=== PATIENT | male | born 1945 | race Caucasian/White ===

== ENCOUNTER 2019-02-22 16:19 | Inpatient (IN) | payer MEDICAID ==
[~2019-02-22] VITALS: Ht 167.6 cm; Wt 81.6 kg
--- NOTE | 2019-02-22 16:20 | NUR ---
RAPID RESPONSE CALLED TO JESSICA GRIMES AT APPROX 1612; PT FOUND SITTING UP RIGHT IN TRUCK OF CO-WORKER. PER CO WORKER, PT WAS WORKING FOR HIM AND COLLAPSED AND LANDED ON THE GROUND. PER CO WORKER, PT WAS DID NOT PASS OUT. PT UNABLE TO ANSWER QUESTIONS APPROPRIATELY AT THIS TIME. KAYLAH JAIMES INTERPRETTING FOR PT HE IS [place] SPEAKING ONLY. PT SAYS HE IS IN [place] AND IT IS SATURDAY.
--- NOTE | 2019-02-22 16:24 | NUR ---
AT BEDSIDE; COOL WASH CLOTHS PLACED ON HEAD WITH COOLD WATER POURED ON PT WITH ICE PACKS PLACED AT NECK, ARMPITS, AND GROIN AREA
--- NOTE | 2019-02-22 16:25 | NUR ---
PT ARRIVED TO ED WITH HAT ON, VELCRO WAIST BAND, THICK INNER LAYER LONG SLEEVE AND OUTER SLEEVE ON WITH BLACK SOCKS AND SHOES. ALL CLOTHES REMOVED. PT HAS VERY HOT TO TOUCH SKIN.
[2019-02-22 16:29] VITALS: Ht 167.6 cm; Wt 81.6 kg
--- NOTE | 2019-02-22 16:37 | NUR ---
RT AT BEDSIDE FOR BLOOD GAS
--- NOTE | 2019-02-22 16:41 | NUR ---
REPORT RECEIVED FROM ADRY AQUINO. PT IN FULL MONITORS, SEVERAL MOIST COLD TOWELS ON PT'S BODY. FAN ON HIGH AND BLOWING TOWARD PT PER DR MILLIE FLORES. PT OPENS EYES SPONTANEOUSLY. SPEAKS [place] MAINLY, ASKED WHERE PT IS AT, HE STATED [facility] [place]; ASKED WHERE PT WAS WORKING, PT REPLIED TY; PT CALM AND COOPERATIVE; WHEN ASKED PT HOW HE FEELS HE STATED "I FEEL HOT" IN [place].
[2019-02-22 16:44] LABS: BASOPHIL % 0.4 % (0-2); PLATELET COUNT 262 x10^3mcL (130-400)
[2019-02-22 16:45] LABS: microscopic required? NO
[2019-02-22 16:45] LABS: CALCIUM 8.6 mg/dL (8.5-10.1); CARBON DIOXIDE 28.7 mmol/L (21-32); CHLORIDE SERUM 100 mmol/L (98-107); CREATININE SERUM 0.8 mg/dL (0.7-1.3); GFR1 > 60 mL/min; GLUCOSE SERUM 110 mg/dL (74-106); POTASSIUM SERUM 4.4 mmol/L (3.5-5.1); SODIUM SERUM 136 mmol/L (136-145)
--- NOTE | 2019-02-22 16:47 | NUR ---
DR PINTO AWARE PT COWORKER AT BEDSIDE.
--- NOTE | 2019-02-22 16:47 | NUR ---
PT COWORKER WHO BROUGHT HIM IN AT BEDSIDE WHO VERIFIED THEY WERE WORKING IN [facility]. PT ANSWERS QUESTIONS APPROPRIATELY AT THIS TIME AND STATED HIS FULL AND NAME.
--- NOTE | 2019-02-22 16:48 | NUR ---
PT COWORKER STATED TO DR PINTO "HE WAS JUST OUTSIDE. WE WERE WORKING AND ALL OF A SUDDEN I SEE HIM LAYING DOWN ON THE GROUND. MY DAD SAW HIM."
[2019-02-22 16:51] LABS: ALBUMIN 3.7 g/dL (3.4-5.0); ALKALINE PHOSPHATASE 56 U/L (46-116); ALT/SGPT 20 U/L (16-63); AST/SGOT 13 U/L (15-37); BILIRUBIN TOTAL 0.49 mg/dL (0.20-1.00); TOTAL PROTEIN, SERUM 6.8 g/dL (6.4-8.2)
--- NOTE | 2019-02-22 16:54 | NUR ---
CO WORKER THAT BROUGHT PT IN: [employer] [phone]. HE IS CURRENTLY ONLY POINT OF CONTACT FOR PT. PT HAS NO CELL PHONE NUMBERS IN CELL PHONE AND IS UNABLE TO PROVIDE PHONE NUMBERS AT THIS TIME.
--- NOTE | 2019-02-22 16:57 | NUR ---
PT ABLE TO STATE NAME, , FOLLOW COMMANDS, VERBALIZE THOUGHTS.
[2019-02-22 17:03] LABS: RED CELL DISTRIBUTION WIDTH 17.6 % (11.5-14.5)
[2019-02-22 17:08] LABS: urine erythrocyte NEGATIVE (NEGATIVE)
--- NOTE | 2019-02-22 17:34 | NUR ---
RETURNED FROM CT SCAN. PT REMAINS WITH MOITST COLD TOWEL WITH FAN BLOWING HIGH ON HIM. PT MORE AWAKE AND ALERT THAN PRIOR TO HIM GOING TO CT SCAN. PT MOVES ALL EXTREMITIES NORMALLY. PLACED BACK ON FULL MONITORS
--- NOTE | 2019-02-22 18:15 | NUR ---
CALLED NURSE'S PHONE EXT [phone], NO ANS AT THIS TIME
--- NOTE | 2019-02-22 18:23 | NUR ---
EXT [id number] NOT ANSWERING
--- NOTE | 2019-02-22 18:28 | NUR ---
[id number] NOT ANSWERING - ATTEMPTING TO CALL FOR REPORT
--- NOTE | 2019-02-22 18:31 | NUR ---
REPORT GIVEN TO CINDY AQUINO
--- NOTE | 2019-02-22 18:49 | NUR ---
ANDREW MACHADO DC'ED. PT REPORTS HX OF HTN. INFORMED CINDY GALEANA RN OF SAME.
[2019-02-22 18:52] VITALS: BP 128/61
--- NOTE | 2019-02-22 19:02 | NUR ---
RECEIVED PT FROM ED VIA MINNIE. ORIENTED PT TO ROOM AND SURROUNDINGS. IV NOTED TO LAC PATENT AND INTACT. TELE 4 PLACED ON PT READING NSR. INSTRUCTED PT ON THE USE OF CALL LIGHT FOR ASSISATNCE. ENDORSED PT TO PRIMARY NURSE
--- NOTE | 2019-02-22 19:11 | NUR ---
RECEIVED PT FROM KENIA ALEX. PT A/OX4. DENIES PAIN. DENIES SOB. IV PATENT. ORIENTED PT TO ROOM AND SURROUNDINGS. CALL LIGHT WITHIN REACH, BED IN LOW POSITION. DR NIELSON AT BEDSIDE. WILL CONTINUE TO MONITOR.
[2019-02-22 19:45] LABS: CHOLESTEROL/HDL RATIO 3.1; MAGNESIUM 1.6 mg/dL (1.8-2.4); PHOSPHOROUS 3.6 mg/dL (2.5-4.9)
[2019-02-22 19:54] LABS: T3 TOTAL 0.99 ng/mL
[2019-02-22 19:55] LABS: FREE T4 1.54 ng/dL (0.76-1.46); FREE THYROXINE INDEX 3.2 ug/dL (1.4-4.5); T4(THYROXINE) 8.5 ug/dL (4.7-13.3)
--- NOTE | 2019-02-23 01:55 | NUR ---
PT RESTING IN NO ACUTE DISTRESS. RR EVEN AND UNLABORED. CALL LIGHT WITHIN REACH, BED IN LOW POSITION. WILL CONTINUE TO MONITOR.
--- NOTE | 2019-02-23 06:06 | NUR ---
PT STATES HE TAKES MEDICATION FOR THYROID EVERY MORNING. DR LIANG MADE AWARE.
[2019-02-23 06:17] VITALS: BP 100/50
--- NOTE | 2019-02-23 07:31 | NUR ---
AT 0705 - RECEIVED PATIENT FROM NIGHT NURSE. SLEEPING. RESPIRATIONS REGULAR. IV INFUSING NS AT 100 ML/HR. CONTINUING TO MONITOR.
[2019-02-23 07:46] LABS: BASOPHIL % 0.6 % (0-2); PLATELET COUNT 247 x10^3mcL (130-400); RED CELL DISTRIBUTION WIDTH 18.2 % (11.5-14.5)
[2019-02-23 08:15] LABS: CALCIUM 8.4 mg/dL (8.5-10.1); CARBON DIOXIDE 26.3 mmol/L (21-32); CHLORIDE SERUM 108 mmol/L (98-107); CREATININE SERUM 0.6 mg/dL (0.7-1.3); GLUCOSE SERUM 87 mg/dL (74-106); POTASSIUM SERUM 3.6 mmol/L (3.5-5.1); SODIUM SERUM 143 mmol/L (136-145)
--- NOTE | 2019-02-23 08:37 | NUR ---
PATIENT NOW AWAKE, ALERT AND ORIENTED TO PERSON, PLACE, TIME AND SITUATION. SPEECH CLEAR. DENIES ANY HEADACHE OR DIZZINESS. RECEIVED CALL FROM DAUGHTER STEPHANIE. UPDATED ON PATIENT. SHE CAN BE REACHED ON . CALL IF PATIENT IS TO BE DISCHARGE HOME
--- NOTE | 2019-02-23 08:47 | NUR ---
SEEN BY DR PALMA DURING MORNING ROUNDS. PLAN TO DC HOME TODAY.
[2019-02-23 09:27] VITALS: BP 144/79
--- NOTE | 2019-02-23 10:43 | NUR ---
RECEIVED ORDER FOR PATIENT TO DC HOME AFTER LUNCH.
[2019-02-23 12:26] VITALS: BP 130/57
--- NOTE | 2019-02-23 12:38 | NUR ---
RECEIVED CALL FROM PATIENT'S FRINED. HE WILL BE TAKING PATIENT HOME. HE CAN PICK HIM UP AT 1700.
[2019-02-23 12:44] VITALS: BP 132/56
--- NOTE | 2019-02-23 13:19 | NUR ---
RECEIVED CALL FROM PATIENT'S DAUGHTER, STEPHANIE. SHE SPOKE WITH PATIENT OVER THE PHONE. SHE IS AWARE OF PLAN FOR DC HOME TODAY AND THAT PATIENT'S FRIEND WILL TAKE HIM HOME.
--- NOTE | 2019-02-23 14:47 | NUR ---
AWAKE, ALERT AND ORIENTED. VSS. AFEBRILE. AMBULATING IN ROOM. TAKEN OFF CARDIAC MONITORING. IV CATHETER X 2 FROM [facility] REMOVED INTACT. PREPARED FOR DISCHARGE. RECEIVED CALL FROM PATIENT'S DAUGHTER, THAT PATIENT'S NEPHEW WILL TAKE HIM HOME.
--- NOTE | 2019-02-23 15:32 | NUR ---
PRINTED DISCHARGE INSTRUCTIONS GIVEN AND EXPLAINED TO PATIENT AND FAMILY.
--- NOTE | 2019-02-23 16:05 | NUR ---
AT 1600 - DISCHARGED HOME WITH FAMILY. TAKEN TO DISCHARGE OFFICE IN WHEELCHAIR BY STAMPER BLOCKER.
--- NOTE | 2019-02-23 17:13 | NUR ---
Discount pharmacy card and list to low cost medical clinics given to patient by Ya.
== END 2019-02-23 15:59 | disposition home or self-care (01) | DRG 922 ==
LOC: ED 16:19 → DU 17:39
PROVIDERS: Emergency Medicine; ADMIT Internal Medicine
DX: T67.0XXA Heatstroke and sunstroke, initial encounter (principal); N17.0 Acute kidney failure with tubular necrosis; G89.29 Other chronic pain; E10.9 Type 1 diabetes mellitus without complications; M25.569 Pain in unspecified knee; G90.8 Other disorders of autonomic nervous system; X58.XXXA Exposure to other specified factors, initial encounter; Y93.89 Activity, other specified; Y92.89 Other specified places as the place of occurrence of the external cause; Y99.8 Other external cause status
CPT/HCPCS: 36600; 82962; 83880; 84439; G0378; Q0092